=== PATIENT | female | born 1980 | race African-American/Black ===

== ENCOUNTER 2018-03-14 15:18 | Emergency (ER) | payer OTHER ==
[~2018-03-14] VITALS: Ht 160 cm; Wt 59.1 kg
[~2018-03-14 15:18] MED LIST: NOCURR
[2018-03-14 17:37] VITALS: BP 131/75
== END 2018-03-14 17:37 | disposition home or self-care (01) ==
LOC: EMS 15:19
DX: M54.2 Cervicalgia (principal); H66.93 Otitis media, unspecified, bilateral; R03.0 Elevated blood-pressure reading, without diagnosis of hypertension
CPT/HCPCS: 99283

== ENCOUNTER 2018-04-02 21:19 | Emergency (ER) | payer OTHER ==
[~2018-04-02] VITALS: Ht 160 cm; Wt 66.0 kg
[2018-04-02 21:33] VITALS: BP 121/58
== END 2018-04-02 23:00 | disposition left against medical advice (07) ==
LOC: EMS 21:20
DX: Z53.21 Procedure and treatment not carried out due to patient leaving prior to being seen by health care provider (principal)